=== PATIENT | male | born 1990 | race Caucasian/White ===

== ENCOUNTER 2020-08-08 17:02 | Emergency (ER) | payer BC ==
[2020-08-08] MEDS ORDERED: Sodium Chloride 0.9% 1,000 ML IV ONE (17:25)
[2020-08-08] MEDS ORDERED: Sodium Chloride 0.9% 10 ML Syringe FLUSH PRN (17:25)
[2020-08-08] MEDS ORDERED: Ondansetron 4 MG Tab.DIS PO ONE (17:25)
--- NOTE | 2020-08-08 17:31 | EDM.PDOC ---
ED HPI GENERAL MEDICAL PROBLEM - General Chief Complaint: Abdominal Pain Stated Complaint: UPPER ABD PAIN/NAUSEA/LOST APPETITE Time Seen by Provider: 08/08/20 17:09 Source of Information: Reports: Patient, RN Notes Reviewed History Limitations: Reports: No Limitations - History of Present Illness INITIAL COMMENTS - FREE TEXT/NARRATIVE: Patient is a 30-year-old male who presents to the ED for the evaluation of his right upper quadrant abdominal pain. Patient notes that on Thursday, he thought that he could have gotten a touch of food poisoning, he notes that he ate chicken for supper, and then became violently ill with vomiting and diarrhea shortly after eating the chicken. He states that he felt a little bit better on Thursday, so he ate a cheese quesadilla, and he states that that did not stay down long either and he vomited that back up. He notes this morning morning, he had a blueberry muffin at around 10 AM along with some water, and he states that he has had kind of a constant gripping aching pain in his right upper quadrant since then. He points to his right upper quadrant as being the source of the pain. He took some Henrik back and body sort of aspirin pain reliever, this seemed to help his muscle aches. States he has not really had much of an appetite as it seems everything he tries to eat comes back up. He has been having issues with his stomach on and off for the last year, notes that he has been taking Tums as he is thought this is heartburn issues. He notes that multiple coworkers tell him that he could have gallbladder issues, he tried to call around to get an appointment with a doctor for evaluation but states he was not able to be seen until December, so he comes to the ER for management. He states on Thursday he had chills so much that he could not get himself warm, but no discernible fever. He has had no cough or shortness of breath, he has had nausea, vomiting, diarrhea for the past few days however he states that his diarrhea has gotten a little bit better, and his stools have started to form up again this morning. He takes no other regular medications and denies any other past medical history. He has had no abdominal surgeries. Right Upper Abdominal Pain Score (Numeric/FACES): 6 - Related Data Allergies Allergy/AdvReac Type Severity Reaction Status Date / Time No Known Allergies Allergy Verified 08/08/20 17:11 Past Medical History - Past Health History Medical/Surgical History: Denies Medical/Surgical History Social & Family History - Tobacco Use Tobacco Use Status *Q: Current Every Day Tobacco User Years of Tobacco use: 10 Packs/Tins Daily: 0.5 - Recreational Drug Use Recreational Drug Use: No ED ROS GENERAL - Review of Systems Review Of Systems: Comprehensive ROS is negative, except as noted in HPI. ED EXAM, GI/ABD - Physical Exam Exam: See Below Exam Limited By: No Limitations General Appearance: Alert, WD/WN, No Apparent Distress Respiratory/Chest: No Respiratory Distress, Lungs Clear, Normal Breath Sounds, No Accessory Muscle Use, Chest Non-Tender Cardiovascular: Normal Peripheral Pulses, Regular Rate, Rhythm, No Edema GI/Abdominal Exam: Normal Bowel Sounds, Soft, No Distention, No Mass, Tender (RUQ tenderness) Extremities: Normal Inspection, Normal Capillary Refill Neurological: Alert, Oriented, Normal Cognition, No Motor/Sensory Deficits Psychiatric: Normal Affect, Normal Mood Skin Exam: Warm, Dry, Intact, Normal Color, No Rash Course - Vital Signs Last Recorded V/S: Last Vital Signs Temp 97 F 08/08/20 17:09 Pulse 95 08/08/20 17:09 Resp 16 08/08/20 17:09 BP 165/99 H 08/08/20 17:09 Pulse Ox 96 08/08/20 17:09 - Orders/Labs/Meds Orders: Active Orders 24 hr Category Date Time Status Peripheral IV Care [RC] . DIRECTED Care 08/08/20 17:25 Active Abdomen Pelvis w Cont [CT] Stat Exams 08/08/20 18:52 Taken Sodium Chloride 0.9% [Saline Flush] Med 08/08/20 20:00 Active 10 ml FLUSH ASDIRECTED Sodium Chloride 0.9% [Saline Flush] Med 08/08/20 17:25 Active 10 ml FLUSH ASDIRECTED PRN Peripheral IV Insertion Adult [OM.PC] Routine Oth 08/08/20 17:25 Ordered Medication Orders Sodium Chloride (Sodium Chloride 0.9% 10 Ml Syringe) 10 ml FLUSH ASDIRECTED PRN PRN Reason: Keep Vein Open Last Admin: 08/08/20 17:53 Dose: 10 ml Documented by: JENNIFER Sodium Chloride (Sodium Chloride 0.9% 10 Ml Syringe) 10 ml FLUSH ASDIRECTED HARISH Last Admin: 08/08/20 20:20 Dose: 10 ml Documented by: SALVATORE Labs: Laboratory Tests 08/08/20 08/08/20 08/08/20 Range/Units 17:15 17:15 17:15 WBC 4.56 (4.23-9.07) K/mm3 RBC 5.32 (4.63-6.08) M/mm3 Hgb 16.0 (13.7-17.5) gm/dl Hct 45.4 (40.1-51.0) % MCV 85.3 (79.0-92.2) fl MCH 30.1 (25.7-32.2) pg MCHC 35.2 (32.2-35.5) g/dl RDW Std Deviation 38.4 (35.1-43.9) fL Plt Count 176 (163-337) K/mm3 MPV 8.6 L (9.4-12.3) fl Neut % (Auto) 53.5 (34.0-67.9) % Lymph % (Auto) 31.1 (21.8-53.1) % Bay % (Auto) 12.5 H (5.3-12.2) % Eos % (Auto) 2.0 (0.8-7.0) Baso % (Auto) 0.7 (0.1-1.2) % Neut # (Auto) 2.44 (1.78-5.38) K/mm3 Lymph # (Auto) 1.42 (1.32-3.57) K/mm3 Bay # (Auto) 0.57 (0.30-0.82) K/mm3 Eos # (Auto) 0.09 (0.04-0.54) K/mm3 Baso # (Auto) 0.03 (0.01-0.08) K/mm3 Sodium 140 (136-145) mEq/L Potassium 3.4 L (3.5-5.1) mEq/L Chloride 103 (98-107) mEq/L Carbon Dioxide 28 (21-32) mEq/L Anion Gap 12.4 (5-15) BUN 14 (7-18) mg/dL Creatinine 1.1 (0.7-1.3) mg/dL Est Cr Clr Drug Dosing 95.00 mL/min Estimated GFR (MDRD) > 60 (>60) mL/min BUN/Creatinine Ratio 12.7 L (14-18) Glucose 89 (74-106) mg/dL Calcium 9.2 (8.5-10.1) mg/dL Total Bilirubin 0.8 (0.2-1.0) mg/dL GGT 18 (15-85) U/L AST 22 (15-37) U/L ALT 57 (16-63) U/L Alkaline Phosphatase 66 (46-116) U/L C-Reactive Protein 4.5 H* (<1.0) mg/dL Total Protein 7.3 (6.4-8.2) g/dl Albumin 4.1 (3.4-5.0) g/dl Globulin 3.2 gm/dL Albumin/Globulin Ratio 1.3 (1-2) Lipase 129 (73-393) U/L Meds: Medications Generic Name Dose Route Start Last Admin Trade Name Craig PRN Reason Stop Dose Admin Sodium Chloride 10 ml 08/08/20 17:25 08/08/20 17:53 Sodium Chloride 0.9% 10 Ml Syringe FLUSH 10 ml ASDIRECTED PRN Administration Keep Vein Open Sodium Chloride 10 ml 08/08/20 20:00 08/08/20 20:20 Sodium Chloride 0.9% 10 Ml Syringe FLUSH 10 ml ASDIRECTED HARISH Administration Discontinued Medications Generic Name Dose Route Start Last Admin Trade Name Craig PRN Reason Stop Dose Admin Al Hydroxide/Mg Hydroxide 30 0 ml 08/08/20 18:52 08/08/20 19:48 ml/ Lidocaine HCl 15 ml PO 08/08/20 18:53 45 ml ONETIME ONE Administration Diatrizoate Meglum/Diatrizoate Sod 120 ml 08/08/20 19:58 08/08/20 20:19 Diatrizoate Meglumine/Diatrizoate Sodium 37% 120 Ml Bottle PO 08/08/20 19:59 120 ml ONETIME ONE Administration Sodium Chloride 1,000 mls @ 999 mls/hr 08/08/20 17:25 08/08/20 17:53 Normal Saline IV 08/08/20 18:25 999 mls/hr ONETIME ONE Administration Iopamidol 100 ml 08/08/20 19:58 08/08/20 20:20 Iopamidol 612 Mg/Ml 100 Ml Bottle IVPUSH 08/08/20 19:59 100 ml ONETIME ONE Administration Ondansetron HCl 4 mg 08/08/20 17:25 08/08/20 17:53 Ondansetron 4 Mg Tab.Dis PO 08/08/20 17:26 4 mg ONETIME ONE Administration - Re-Assessments/Exams Free Text/Narrative Re-Assessment/Exam: 08/08/20 17:30 Patient presents to the ED for the evaluation of his right upper quadrant pain with associated nausea/vomiting. Likely this could have some sort of gallbladder etiology however I think the insulting factor was most likely food poisoning on Thursday due to the chicken he ate. He could be having lingering symptoms due to the suspected food poisoning as well nonetheless we will get a gallbladder ultrasound, take some baseline labs for evaluation, we will give him a bag of fluids as he states he is not been able to keep much down for food or fluids at all for the past few days. He will also get 4 mg Zofran for management. 08/08/20 18:04 Patient's white count is not elevated, metabolic panel is essentially unremarkable, his CRP is elevated at 4.7. There is some sort of inflammation going on, it could be due to again suspected possible food poisoning versus gallbladder etiology, the patient's ultrasound is being performed, and we will await results. 08/08/20 19:11 Patient's ultrasound has returned, demonstrates no gallbladder abnormalities at this time, continues no gallstones, there is no wall thickening or biliary duct dilatation. Questionable hypoechoic pancreatic head is seen, difficult to exclude pancreatitis if the patient has symptoms of such. Pancreas is otherwise poorly seen. With this result, I did add on a lipase to his labs, I went over the results with the patient, and he would like to move forward with the CT, so I have ordered abdomen pelvis CT with IV and oral contrast for further evaluation. Patient notes he was still having some pain in his abdomen I will try GI cocktail at this time to see if this helps. 08/08/20 19:36 Lipase is within normal limits at 129. 08/08/20 21:22 CT done demonstrates no focal abnormalities, there is marked enlargement of the liver measuring 20 cm and a diffuse decrease in hepatic parenchymal density consistent with fatty infiltration. Otherwise no acute findings were appreciated. We will go ahead and discharge the patient with conservative recommendations, I will refer him to Sean Crain in the clinic for possible surgical referral for EGD. We will have him start omeprazole, and Pepcid, will have him stick to a clear liquid diet for the next few days, give him some Zofran and return to the ER if things are not much better. Departure - Departure Time of Disposition: 21:24 Disposition: Home, Self-Care 01 Condition: Good Clinical Impression: Upper abdominal pain - Discharge Information *PRESCRIPTION DRUG MONITORING PROGRAM REVIEWED*: No *COPY OF PRESCRIPTION DRUG MONITORING REPORT IN PATIENT CHIARA: No Instructions: Abdominal Pain, Adult, [id number] Referrals: Bradford Crain, [facility] [Nurse Practitioner] - 1 Week (follow up for upper abd pain, needs poss referral for surgery for EGD) Forms: ED Department Discharge Additional Instructions: You were evaluated in the ER today for your upper abdominal pain. Your labs were fairly unremarkable however your markers for inflammation were elevated. The history of your symptoms was concerning for possible food p oisoning on Thursday night. You were given some antinausea medications and IV fluids in the ER, and this seemed to help somewhat. You had a gallbladder ultrasound and an abdomen pelvis CT, and everything was essentially unremarkable. Highly recommend you follow-up with your regular care provider, I will refer you to Sean Crain, nurse practitioner in our clinic, please call [phone], tomorrow morning to obtain an appointment with her for further evaluation and management, you would likely benefit from a general surgery consult for possible upper GI series likely EGD for evaluation of possible ulcer in your stomach. Recommend you start omeprazole, this is a medicine you can take [id number], it may take up to 72 hours to start working, this will help suppress the acid in your stomach. You may take Pepcid over the next few days while the omeprazole is given time to work, this is another antacid type medication. Highly recommend you stick to more of a clear liquid diet for the next 24 to 48 hours, and then advance to bland as tolerated. Please return to the ER at any time if symptoms change or worsen. Sepsis Event Note (ED) - Evaluation Sepsis Screening Result: No Definite Risk - Focused Exam Vital Signs: Vital Signs Temp Pulse Resp BP Pulse Ox 08/08/20 17:09 97 F 95 16 165/99 H 96 - My Orders Last 24 Hours: My Active Orders 08/08/20 17:25 Peripheral IV Care [RC] . DIRECTED Sodium Chloride 0.9% [Saline Flush] 10 ml FLUSH ASDIRECTED PRN Peripheral IV Insertion Adult [OM.PC] Routine 08/08/20 18:52 Abdomen Pelvis w Cont [CT] Stat 08/08/20 20:00 Sodium Chloride 0.9% [Saline Flush] 10 ml FLUSH ASDIRECTED - Assessment/Plan Last 24 Hours: My Active Orders 08/08/20 17:25 Peripheral IV Care [RC] . DIRECTED Sodium Chloride 0.9% [Saline Flush] 10 ml FLUSH ASDIRECTED PRN Peripheral IV Insertion Adult [OM.PC] Routine 08/08/20 18:52 Abdomen Pelvis w Cont [CT] Stat 08/08/20 20:00 Sodium Chloride 0.9% [Saline Flush] 10 ml FLUSH ASDIRECTED
--- NOTE | 2020-08-08 18:42 | US ---
Limited abdominal ultrasound: Multiple real-time images of the upper right abdomen were obtained. Comparison: No previous abdominal imaging. Findings: Liver is echogenic as related to the right kidney most likely representing diffuse fatty infiltration. Gallbladder contains no shadowing gallstones. No gallbladder wall thickening or biliary duct dilatation is appreciated. Right kidney shows no hydronephrosis. No discrete mass is noted. Length of the right kidney is 10.1 cm. Proximal aorta shows no aneurysm. Questionable hypoechoic pancreatic head is seen. Difficult to exclude pancreatitis if patient has symptoms of such. Pancreas is otherwise poorly seen. Inferior vena cava is patent. Main portal vein shows normal hepatopedal flow. Impression: 1. Equivocal pancreatic head finding as noted above. 2. Fatty infiltration within the liver. 3. No additional abnormality is appreciated. Diagnostic code #3
[2020-08-08] MEDS ORDERED: Alum Hydrox/Mag Hydrox/Simeth 30 ML, Lidocaine 2% 15 ML PO ONE ×2 (18:52)
[2020-08-08] MEDS ORDERED: Iopamidol 612 MG/ML 100 ML Bottle IVPUSH ONE (19:58)
[2020-08-08] MEDS ORDERED: Diatrizoate Meglumine/Diatrizoate Sodium 37% 120 ML Bottle PO ONE (19:58)
[2020-08-08] MEDS ORDERED: Sodium Chloride 0.9% 10 ML Syringe FLUSH SCH (20:00)
--- NOTE | 2020-08-09 08:32 | CT ---
CT abdomen and pelvis Technique: Multiple axial sections were obtained from above the dome of the diaphragm inferiorly through the pubic symphysis. Reconstructed coronal and sagittal images were obtained. Comparison: Prior limited abdominal ultrasound exam of 08/08/20. Findings: Visualized lung bases show nothing acute. Fatty infiltration is noted throughout the liver. No focal abnormality is appreciated. Spleen appears normal. Small amount of accessory splenic tissue is noted off the anterior spleen. Adrenal glands show no nodule. Pancreas shows no discrete abnormality. Previous finding on ultrasound study is not confirmed on the CT exam. Kidneys show symmetric contrast enhancement without hydronephrosis or mass. Gallbladder contains no calcified gallstones. Abdominal aorta shows no aneurysm. No retroperitoneal adenopathy or mesenteric abnormalities are seen. Appendix is seen which is normal. No pelvic mass or adenopathy is identified. Bone window settings were reviewed which show no acute osseous finding. Small fat-containing umbilical hernia is noted. Impression: 1. Fatty infiltration within the liver. 2. No findings of pancreatitis are seen as questioned on ultrasound study performed on the same day. 3. Other incidental findings as noted above. Diagnostic code #2 I agree with preliminary report from [facility], finalized on 08/08/20, 10:20 PM CDT
== END 2020-08-08 21:40 | disposition home or self-care (01) ==
LOC: JD.ED 17:02
DX: R10.11 Right upper quadrant pain (principal); Z72.0 Tobacco use
CPT/HCPCS: 36415; 74177; 76705; 80053; 82977; 83690; 85025; 86140; 99284; A9270; J7030; Q9963; Q9967

== ENCOUNTER 2023-09-07 07:37 | Emergency (ER) | payer BC ==
[2023-09-07] MEDS: Ondansetron 4 MG/2 ML SDV IVPUSH ONE (08:11)
[2023-09-07] MEDS: Sucralfate Suspension 1 GM/10 ML Cup PO ONE (08:12)
[2023-09-07] MEDS: Sodium Chloride 0.9% 10 ML Syringe FLUSH PRN ×2 (08:12→10:11)
[2023-09-07] MEDS: Pantoprazole 40 MG Vial IVPUSH ONE (08:12)
[2023-09-07] MEDS: Sodium Chloride 0.9% 1,000 ML IV ONE (08:30)
[2023-09-07 08:38] LABS: BASOPHILS PERCENT AUTO 0.5 % (0.0-1.0); EOSINOPHILS ABSOLUTE AUTO 0.1 K/mm3 (0.0-0.4); EOSINOPHILS PERCENT AUTO 1.8 % (0.0-6.0); HEMATOCRIT 44.6 % (42.0-52.0); HEMOGLOBIN 15.7 gm/dl (14.0-18.0); IMMATURE GRAN ABSOLUTE AUTO 0.01 K/mm3 (0.00-0.05); IMMATURE GRAN PERCENT AUTO 0.2 % (0.0-0.4); LYMPHOCYTES ABSOLUTE AUTO 1.2 K/mm3 (1.0-4.8); LYMPHOCYTES PERCENT AUTO 19.5 % (24.0-44.0); MEAN CORPUSCULAR HEMOGLOBIN 30.5 pg (28.0-32.0); MEAN CORPUSCULAR HGB CONC 35.2 g/dl (32.0-36.0); MEAN CORPUSCULAR VOLUME 86.6 fl (83.0-99.0); MEAN PLATELET VOLUME 8.3 fl (9.4-12.4); MONOCYTES ABSOLUTE AUTO 0.3 K/mm3 (0.0-0.8); MONOCYTES PERCENT AUTO 4.6 % (0.0-8.0); NEUTROPHILS ABSOLUTE AUTO 4.6 K/mm3 (1.8-7.7); NEUTROPHILS PERCENT AUTO 73.4 % (41.0-71.0); PLATELET COUNT,PLT 197 K/mm3 (150-400); RED BLOOD CELL COUNT 5.15 M/mm3 (4.52-5.90); WHITE BLOOD CELL COUNT,WBC 6.26 K/mm3 (3.9-11.3)
[2023-09-07 09:02] LABS: A/G RATIO 1.4 (1-2); ALBUMIN 4.1 g/dl (3.4-5.0); ANION GAP 12.1 (5-15); BILIRUBIN TOTAL 0.9 mg/dL (0.2-1.0); BUN/CREATININE RATIO 8.2 (14-18); CALCIUM 9.3 mg/dL (8.5-10.1); CREATININE 1.1 mg/dL (0.7-1.3); EST CRCL DRUG DOSING (CG) 92.41 mL/min; MAGNESIUM 1.9 mg/dL (1.8-2.4); POTASSIUM,K 4.1 mEq/L (3.5-5.1)
[2023-09-07] MEDS: Alum Hydrox/Mag Hydrox/Simeth 30 ML, Lidocaine 2% 15 ML PO ONE (09:50)
[2023-09-07] MEDS: Iopamidol 612 MG/ML 100 ML Bottle IVPUSH ONE (10:11)
== END 2023-09-07 11:26 | disposition home or self-care (01) ==
LOC: JD.ED 07:37
DX: K29.00 Acute gastritis without bleeding (principal); F17.210 Nicotine dependence, cigarettes, uncomplicated; Z86.16 Personal history of COVID-19
CPT/HCPCS: 36415; 74177; 80053; 83735; 85025; 96361; 96374; 96375; 99284; A9270; C9113; J2405; J3490; J7030; Q9967